=== PATIENT | female | born 1995 | race African-American/Black ===

== ENCOUNTER 2016-07-03 00:15 | Emergency (ER) | payer OTHER ==
[2016-07-03 01:15] LABS: MEAN CORPUSCULAR HEMOGLOBIN 22.8 pg (27.0-33.0); MEAN CORPUSCULAR HGB CONC 30.7 g/dl (32.0-36.5); MEAN CORPUSCULAR VOLUME 74.2 fl (80.0-96.0); RED CELL DISTRIBUTION WIDTH 14.9 % (11.5-14.5); WHITE BLOOD COUNT 8.1 K/mm3 (4.0-10.0)
[2016-07-03 01:32] LABS: CONTROL LINE HCG INT CTR LINE PRESENT
[2016-07-03 01:48] LABS: ALBUMIN 3.8 GM/DL (3.2-5.2); ALBUMIN/GLOBULIN RATIO 1.09 (1.00-1.93); ALKALINE PHOSPHATASE 65 U/L (45-117); ALT/SGPT 30 U/L (12-78); ANION GAP 9 MEQ/L (8-16); AST/SGOT 30 U/L (15-37); BILIRUBIN,DIRECT < 0.1 MG/DL (0.0-0.2); BILIRUBIN,TOTAL 0.2 MG/DL (0.2-1.0); BLOOD UREA NITROGEN 12 MG/DL (7-18); CALCIUM LEVEL 8.1 MG/DL (8.5-10.1); CARBON DIOXIDE LEVEL 27 MEQ/L (21-32); CHLORIDE LEVEL 105 MEQ/L (98-107); CREATININE FOR GFR 1.07 MG/DL (0.55-1.02); GLOMERULAR FILTRATION RATE > 60.0 (>60); GLUCOSE, FASTING 107 MG/DL (70-105); POTASSIUM SERUM 3.6 MEQ/L (3.5-5.1); SODIUM LEVEL 141 MEQ/L (136-145); TOTAL PROTEIN 7.3 GM/DL (6.4-8.2)
--- NOTE | 2016-07-03 04:32 | EDDOCDS ---
Physician Documentation [facility] Name: Corazon Portillo Age: 20 yrs Sex: Female : 1995 Arrival Date: 07/03/2016 Time: 00:15 Bed OBSERVATION Private MD: [facility] [place] Disposition: 07/03/16 04:16 Discharged to Home/Self Care. Impression: Alcohol abuse with intoxication, Adult antisocial behavior. - Condition is Stable. - Medication Reconciliation, Local Pharmacy Hours form. - Follow up: [facility] [place]; When: Call to arrange an appointment; Reason: Recheck today's complaints. - Problem is new. - Symptoms are unchanged. Historical: - Allergies: No known drug Allergies; - Home Meds: 1. none - PMHx: none; - PSHx: none; - Social history: Smoking status: Patient states was never smoker of tobacco. No barriers to communication noted, The patient speaks fluent Frisian. - Family history: Not pertinent. - : The pt / caregiver states he / she is not on anticoagulants. Home medication list is obtained from [employer] import data. - Exposure Risk Screening:: None identified. Vital Signs: 07/03 00:21 BP 116 / 60 LA Supine (auto/reg); Pulse 67 MON; Resp 18 S; Temp 97.6(TE); Pulse Ox 99% cln on R/A; 01:35 BP 121 / 47; Pulse 64; Resp 16; Pulse Ox 100% on R/A; ko2 02:29 BP 118 / 51; Pulse 64; Resp 16; Pulse Ox 100% ; Pain 0/10; ko2 04:29 BP 119 / 50; Pulse 64; Resp 16; Temp 98.4; Pulse Ox 100% ; Pain 0/10; ko2 MDM: 00:57 Consult PFS/PSA/Quality Control Manager ordered. cs11 00:57 Consult PFS/PSA/Quality Control Manager: Patient's case requires discussion with on-call cs11 Psychiatrist ordered. 00:57 PSA/PFS to call Nursing Courtesy Bus Driver, to enter [place] data [place] if patient cs11 involuntarily admitted or transferred for SI or HI ordered. 00:57 Confirm accurate psychiatric medication list and times of last dosage ordered. cs11 00:57 Detain Pt Until Medically/PFS Cleared ordered. cs11 00:58 Acetaminophen Level Ordered. EDMS 00:58 Basic Metabolic Profile Ordered. EDMS 00:58 Complete Blood Count Ordered. EDMS 00:58 Drug Eval Toxicology ED Only Ordered. EDMS 00:58 Ethyl Alcohol (ethanol) Ordered. EDMS 00:58 HCG,Serum Qualitative Ordered. EDMS 00:58 Liver Profile Ordered. EDMS 00:58 Salicylate Level Ordered. EDMS 00:58 Thyroid Stimulating Hormone Ordered. EDMS 01:52 Fingerstick Blood Sugar Reviewed. cs11 01:52 Acetaminophen Level Reviewed. cs11 01:52 Basic Metabolic Profile Reviewed. cs11 01:52 Complete Blood Count Reviewed. cs11 01:52 Ethyl Alcohol (ethanol) Reviewed. cs11 01:52 Salicylate Level Reviewed. cs11 01:52 HCG,Serum Qualitative Reviewed. cs11 01:52 Liver Profile Reviewed. cs11 01:52 Thyroid Stimulating Hormone Reviewed. cs11 Point of Care Testing: Blood Glucose: 00:30 Blood Glucose: 132 mg/dL; ko2 Ranges: Signatures: Dispatcher [employer] Thor Jhaveri DO DO cs11 Dolores Uptno,RN RN ko2 MTDD
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
--- NOTE | 2016-07-05 05:32 | EDDOCDS ---
Physician Documentation [facility] Name: Corazon Portillo Age: 20 yrs Sex: Female : 1995 Arrival Date: 07/03/2016 Time: 00:15 Bed OBSERVATION Private MD: [facility] [place] Disposition: 07/03/16 04:16 Discharged to Home/Self Care. Impression: Alcohol abuse with intoxication, Adult antisocial behavior. - Condition is Stable. - Medication Reconciliation, Local Pharmacy Hours form. - Follow up: [facility] [place]; When: Call to arrange an appointment; Reason: Recheck today's complaints. - Problem is new. - Symptoms are unchanged. Historical: - Allergies: No known drug Allergies; - Home Meds: 1. none - PMHx: none; - PSHx: none; - Social history: Smoking status: Patient states was never smoker of tobacco. No barriers to communication noted, The patient speaks fluent Yi. - Family history: Not pertinent. - : The pt / caregiver states he / she is not on anticoagulants. Home medication list is obtained from [employer] import data. - Exposure Risk Screening:: None identified. Vital Signs: 07/03 00:21 BP 116 / 60 LA Supine (auto/reg); Pulse 67 MON; Resp 18 S; Temp 97.6(TE); Pulse Ox 99% cln on R/A; 01:35 BP 121 / 47; Pulse 64; Resp 16; Pulse Ox 100% on R/A; ko2 02:29 BP 118 / 51; Pulse 64; Resp 16; Pulse Ox 100% ; Pain 0/10; ko2 04:29 BP 119 / 50; Pulse 64; Resp 16; Temp 98.4; Pulse Ox 100% ; Pain 0/10; ko2 MDM: 00:57 Consult PFS/PSA/Director Of Housing ordered. cs11 00:57 Consult PFS/PSA/Director Of Housing: Patient's case requires discussion with on-call cs11 Psychiatrist ordered. 00:57 PSA/PFS to call Nursing Pool Cleaner, to enter patient data [place] if patient cs11 involuntarily admitted or transferred for SI or HI ordered. 00:57 Confirm accurate psychiatric medication list and times of last dosage ordered. cs11 00:57 Detain Pt Until Medically/PFS Cleared ordered. cs11 00:58 Acetaminophen Level Ordered. EDMS 00:58 Basic Metabolic Profile Ordered. EDMS 00:58 Complete Blood Count Ordered. EDMS 00:58 Drug Eval Toxicology ED Only Ordered. EDMS 00:58 Ethyl Alcohol (ethanol) Ordered. EDMS 00:58 HCG,Serum Qualitative Ordered. EDMS 00:58 Liver Profile Ordered. EDMS 00:58 Salicylate Level Ordered. EDMS 00:58 Thyroid Stimulating Hormone Ordered. EDMS 01:52 Fingerstick Blood Sugar Reviewed. cs11 01:52 Acetaminophen Level Reviewed. cs11 01:52 Basic Metabolic Profile Reviewed. cs11 01:52 Complete Blood Count Reviewed. cs11 01:52 Ethyl Alcohol (ethanol) Reviewed. cs11 01:52 Salicylate Level Reviewed. cs11 01:52 HCG,Serum Qualitative Reviewed. cs11 01:52 Liver Profile Reviewed. cs11 01:52 Thyroid Stimulating Hormone Reviewed. cs11 04:33 Financial registration complete. hs2 04:42 [facility] Payment Agreement was scanned into [employer] and attached to record. hs2 14:32 T-Sheet-- Draft Copy was scanned into [employer] and attached to record. gb 14:33 PCR was scanned into [employer] and attached to record. gb Point of Care Testing: Blood Glucose: 00:30 Blood Glucose: 132 mg/dL; ko2 Ranges: Signatures: Dispatcher [employer] EDMS Ana Kumar, Reg Reg gb Thor Robison DO DO cs11 Dolores Upton,RN RN ko2 Antonette Alexis, Reg Reg hs2 The chart was reviewed and I authenticate all verbal orders and agree with the evaluation and treatment provided.Attachments: 04:42 [facility] Payment Agreement hs2 14:32 T-Sheet-- Draft Copy gb Chart Complete MTDD
--- NOTE | 2016-07-05 05:32 | EDDOCDS ---
Physician Documentation [facility] Name: Corazon Portillo Age: 20 yrs Sex: Female : 1995 Arrival Date: 07/03/2016 Time: 00:15 Bed OBSERVATION Private MD: [facility] [place] Disposition: 07/03/16 04:16 Discharged to Home/Self Care. Impression: Alcohol abuse with intoxication, Adult antisocial behavior. - Condition is Stable. - Medication Reconciliation, Local Pharmacy Hours form. - Follow up: [facility] [place]; When: Call to arrange an appointment; Reason: Recheck today's complaints. - Problem is new. - Symptoms are unchanged. Historical: - Allergies: No known drug Allergies; - Home Meds: 1. none - PMHx: none; - PSHx: none; - Social history: Smoking status: Patient states was never smoker of tobacco. No barriers to communication noted, The patient speaks fluent Khmer. - Family history: Not pertinent. - : The pt / caregiver states he / she is not on anticoagulants. Home medication list is obtained from [employer] import data. - Exposure Risk Screening:: None identified. Vital Signs: 07/03 00:21 BP 116 / 60 LA Supine (auto/reg); Pulse 67 MON; Resp 18 S; Temp 97.6(TE); Pulse Ox 99% cln on R/A; 01:35 BP 121 / 47; Pulse 64; Resp 16; Pulse Ox 100% on R/A; ko2 02:29 BP 118 / 51; Pulse 64; Resp 16; Pulse Ox 100% ; Pain 0/10; ko2 04:29 BP 119 / 50; Pulse 64; Resp 16; Temp 98.4; Pulse Ox 100% ; Pain 0/10; ko2 MDM: 00:57 Consult PFS/PSA/Drywaller ordered. cs11 00:57 Consult PFS/PSA/Drywaller: Patient's case requires discussion with on-call cs11 Psychiatrist ordered. 00:57 PSA/PFS to call Nursing Shipwright Helper, to enter patient data [place] if patient cs11 involuntarily admitted or transferred for SI or HI ordered. 00:57 Confirm accurate psychiatric medication list and times of last dosage ordered. cs11 00:57 Detain Pt Until Medically/PFS Cleared ordered. cs11 00:58 Acetaminophen Level Ordered. EDMS 00:58 Basic Metabolic Profile Ordered. EDMS 00:58 Complete Blood Count Ordered. EDMS 00:58 Drug Eval Toxicology ED Only Ordered. EDMS 00:58 Ethyl Alcohol (ethanol) Ordered. EDMS 00:58 HCG,Serum Qualitative Ordered. EDMS 00:58 Liver Profile Ordered. EDMS 00:58 Salicylate Level Ordered. EDMS 00:58 Thyroid Stimulating Hormone Ordered. EDMS 01:52 Fingerstick Blood Sugar Reviewed. cs11 01:52 Acetaminophen Level Reviewed. cs11 01:52 Basic Metabolic Profile Reviewed. cs11 01:52 Complete Blood Count Reviewed. cs11 01:52 Ethyl Alcohol (ethanol) Reviewed. cs11 01:52 Salicylate Level Reviewed. cs11 01:52 HCG,Serum Qualitative Reviewed. cs11 01:52 Liver Profile Reviewed. cs11 01:52 Thyroid Stimulating Hormone Reviewed. cs11 04:33 Financial registration complete. hs2 04:42 [facility] Payment Agreement was scanned into [employer] and attached to record. hs2 14:32 T-Sheet-- Draft Copy was scanned into [employer] and attached to record. gb 14:33 PCR was scanned into [employer] and attached to record. gb Point of Care Testing: Blood Glucose: 00:30 Blood Glucose: 132 mg/dL; ko2 Ranges: Signatures: Dispatcher [employer] EDMS Ana Kumar, Reg Reg gb Thor Robison DO DO cs11 Dolores Upton,RN RN ko2 Antonette Alexis, Reg Reg hs2 The chart was reviewed and I authenticate all verbal orders and agree with the evaluation and treatment provided.Attachments: 04:42 [facility] Payment Agreement hs2 14:32 T-Sheet-- Draft Copy gb Chart Complete MTDD
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
== END 2016-07-03 04:30 | disposition home or self-care (01) ==
LOC: M ED 00:15
DX: F10.120 Alcohol abuse with intoxication, uncomplicated (principal); Z72.811 Adult antisocial behavior
CPT/HCPCS: 36415; 80048; 80076; 84443; 84703; 85027; 99283; G0480

== ENCOUNTER 2017-07-27 12:45 | Outpatient (CLI) | payer OTHER, SELFPAY ==
[2017-07-27] MEDS: LR 1,000 ML IV (13:45)
[2017-07-27] MEDS ORDERED: FLUCONAZOLE 50MG TABLET PO (14:15)
[2017-07-27 14:32] LABS: APPEARANCE, URINE CLEAR (CLEAR); BACTERIA, URINE AUTO NEGATIVE (NEGATIVE); BILIRUBIN, URINE AUTO NEGATIVE (NEGATIVE); BLOOD, URINE BLOOD NEGATIVE (NEGATIVE); COLOR, URINE STRAW (YELLOW); GLUCOSE, URINE (UA) AUTO NEGATIVE (NEGATIVE); KETONE, URINE AUTO 1+ mg/dL (NEGATIVE); LEUKOCYTE ESTERASE, URINE AUTO NEGATIVE (NEGATIVE); NITRITE, URINE AUTO NEGATIVE (NEGATIVE); PROTEIN, URINE AUTO NEGATIVE (NEGATIVE); RBC, URINE AUTO 0 /HPF (0-3); SPECIFIC GRAVITY URINE AUTO 1.004 (1.002-1.035); SQUAMOUS EPITHELIAL CELL UR AU 3 /HPF (0-6); UROBILINOGEN, URINE AUTO 0.2 mg/dL (0.0-2.0); WBC, URINE AUTO 0 /HPF (0-3)
[2017-07-27] MEDS: FLUCONAZOLE 50MG TABLET PO (14:45)
[2017-07-27] MEDS: FLUCONAZOLE 100 MG TAB PO (14:45)
[2017-07-27] MEDS: ACETAMINOPHEN 500 MG TAB PO (14:46)
[2017-07-27 16:15] LABS: CHLAMYDIA DNA AMPLIFICATION NEGATIVE (NEGATIVE); GC DNA AMPLIFICATION NEGATIVE (NEGATIVE)
== END 2017-07-27 15:49 | disposition home or self-care (01) ==
LOC: M LDO 12:45
DX: O26.893 Other specified pregnancy related conditions, third trimester (principal); M54.5 Low back pain; O23.593 Infection of other part of genital tract in pregnancy, third trimester; Z3A.33 33 weeks gestation of pregnancy
CPT/HCPCS: 59025

== ENCOUNTER 2017-09-02 04:07 | Outpatient (CLI) | payer OTHER | END 2017-09-02 05:45 | disposition home or self-care (01) | LOC: M LDO 04:07 | DX: O47.1 False labor at or after 37 completed weeks of gestation (principal); Z3A.38 38 weeks gestation of pregnancy | CPT/HCPCS: 59025 ==

== ENCOUNTER 2017-09-17 10:56 | Outpatient (CLI) | payer OTHER ==
[2017-09-17] MEDS ORDERED: LACTATED RINGER'S 1000 ML IV (11:48)
== END 2017-09-17 14:55 | disposition home or self-care (01) ==
LOC: M LDO 10:56
DX: O47.1 False labor at or after 37 completed weeks of gestation (principal); Z3A.40 40 weeks gestation of pregnancy; O99.213 Obesity complicating pregnancy, third trimester; O99.353 Diseases of the nervous system complicating pregnancy, third trimester; G43.909 Migraine, unspecified, not intractable, without status migrainosus; O99.820 Streptococcus B carrier state complicating pregnancy
CPT/HCPCS: 59025

== ENCOUNTER 2017-09-17 15:20 | Inpatient (IN) | payer OTHER ==
[2017-09-17 16:18] LABS: HEMOGLOBIN 9.5 g/dl (12.0-15.5); MEAN CORPUSCULAR HEMOGLOBIN 20.7 pg (27.0-33.0); MEAN CORPUSCULAR HGB CONC 30.6 g/dl (32.0-36.5); MEAN CORPUSCULAR VOLUME 67.7 fl (80.0-96.0); PLATELET COUNT, AUTOMATED 187 10^3/uL (150-450); RED BLOOD COUNT 4.58 10^6/uL (4.00-5.40); RED CELL DISTRIBUTION WIDTH 17.8 % (11.5-14.5); WHITE BLOOD COUNT 11.3 10^3/uL (4.0-10.0)
[2017-09-17] MEDS: PENICILLIN G POTASSIUM IV 5 MU in D5W MINI-BAG PLUS 100 ML IV (16:18)
[2017-09-17] MEDS: LR 1,000 ML IV ×2 (16:18→20:47)
[2017-09-17] MEDS: NALBUPHINE HCL 10 MG/ML AMP (J2300) IV (17:00)
[2017-09-17] MEDS: PROMETHAZINE INJ 25 MG/ML VIAL (J2550) IV (17:01)
[2017-09-17] MEDS ORDERED: FENTANYL 2MCG/ML ROPIVACAINE 0.2% IN 0.9% NACL 200ML IVBAG As Ordered (20:13)
[2017-09-17] MEDS: PENICILLIN G POTASSIUM IV 2.5 MU in APPROPRIATE DILUENT 1 EA IV (20:47)
[2017-09-17] MEDS ORDERED: FENTANYL/ROPIVACAINE/NACL BAG 200 ML EPIDURAL (21:15)
[2017-09-17] MEDS ORDERED: REFRIGERATOR IV KEYS XX (21:15)
[2017-09-17] MEDS ORDERED: LACTATED RINGER'S 1000 ML IV (21:15)
[2017-09-17] MEDS ORDERED: ONDANSETRON 4MG/2ML VIAL (J2405) IV (21:15)
[2017-09-17] MEDS ORDERED: diphenhydrAMINE INJ 50MG/ML VIAL (J1200) IV (21:15)
[2017-09-17] MEDS ORDERED: ePHEDrine SULFATE 25 MG/5 ML(5MG/ML) SYRINGE IV (21:15)
[2017-09-17] MEDS ORDERED: NALOXONE INJ 0.4 MG/1 ML VIAL (J2310) IV (21:15)
[2017-09-17] MEDS ORDERED: EPIDURAL/PCA KEYS XX (21:15)
[2017-09-17] MEDS ORDERED: EPIDURAL COMMENT XX (21:15)
[2017-09-17] MEDS ORDERED: OXYTOCIN 30 UNITS IN 0.9% NaCl 500ML IV BAG (J2590) As Ordered (22:28)
[2017-09-17] MEDS ORDERED: EPINEPHrine INJ 1 MG/ML 1ML AMP As Ordered (23:01)
[2017-09-17] MEDS ORDERED: LIDOCAINE PRES-FREE 2% 10ML AMP As Ordered ×2 (23:01)
[2017-09-17] MEDS ORDERED: OXYTOCIN INJ 10 UNITS/ML VIAL (J2590) As Ordered ×2 (23:04)
[2017-09-17] MEDS ORDERED: ceFAZolin 2 GM/D5W 50 ML IV BAG (J0690 PER 500MG) As Ordered ×2 (23:10→23:15)
[2017-09-17] MEDS ORDERED: BICITRA 30ML SOLN UDC As Ordered ×2 (23:11→23:15)
[2017-09-17] MEDS: BICITRA 30ML SOLN UDC PO (23:30)
[2017-09-18] MEDS ORDERED: MORPHINE PRES-FREE INJ 10 MG/10 ML VIAL (J2274) As Ordered (00:11)
[2017-09-18] MEDS ORDERED: METOCLOPRAMIDE INJ 10MG/2ML VIAL (J2765) IV ×2 (00:30→01:00)
[2017-09-18] MEDS ORDERED: NALOXONE INJ 0.4 MG/1 ML VIAL (J2310) IV ×2 (00:30)
[2017-09-18] MEDS ORDERED: ONDANSETRON 4MG/2ML VIAL (J2405) IV ×2 (00:30→01:15)
[2017-09-18 00:31] LABS: CORD GAS ABE V -4.2; CORD GAS HCO3 V 23.6 MEQ/L; CORD GAS O2 SAT V 33.4 %; CORD GAS PH V 7.266 UNITS; CORD GAS PO2 V 17.4 mmHg; CORD GAS SBC V 19.4 MEQ/L; CORD GAS TCO2 V 25.2 MEQ/L
[2017-09-18 00:40] LABS: CORD GAS PH A 7.224 UNITS
[2017-09-18 00:41] LABS: CORD GAS ABE A -4.6; CORD GAS HCO3 A 24.2 MEQ/L; CORD GAS PCO2 A 59.9 mmHg; CORD GAS PO2 A 10.3 mmHg
[2017-09-18] MEDS ORDERED: PERCOCET 5MG/325MG TAB PO (01:00)
[2017-09-18] MEDS ORDERED: KETOROLAC 30 MG/ML VIAL (J1885) IV ×2 (01:00→01:15)
[2017-09-18] MEDS ORDERED: ONDANSETRON 4MG/2ML VIAL (J2405) As Ordered (01:04)
[2017-09-18] MEDS ORDERED: NALBUPHINE HCL 10 MG/ML AMP (J2300) IV (01:15)
[2017-09-18] MEDS ORDERED: fentaNYL 100 MCG/2 ML INJECTION (J3010) IV (01:15)
[2017-09-18] MEDS: PERCOCET 5MG/325MG TAB PO ×2 (03:24→18:05)
[2017-09-18] MEDS: LR 1,000 ML IV (04:59)
[2017-09-18] MEDS: KETOROLAC 30 MG/ML VIAL (J1885) IV ×3 (06:46→18:46)
[2017-09-18] MEDS: RHOGAM 300 MCG (1500 IU) INJ (J2790) IM (07:22)
[2017-09-18] MEDS: MEASLES,MUMPS,RUBELLA VACCINE INJ (MMR-II) (90707) SC (07:22)
[2017-09-18] MEDS: NALBUPHINE HCL 10 MG/ML AMP (J2300) IV (08:31)
[2017-09-18] MEDS: PRENATAL VITAMINS CHEWABLE TABLET PO (08:31)
[2017-09-18] MEDS: DOCUSATE SODIUM 100 MG CAP PO ×2 (08:31→23:00)
[2017-09-19] MEDS: KETOROLAC 30 MG/ML VIAL (J1885) IV ×2 (00:23→01:00)
[2017-09-19] MEDS: IBUPROFEN 800 MG TAB PO ×3 (03:40→18:45)
[2017-09-19 06:41] LABS: HEMATOCRIT 23.9 % (36.0-47.0); MEAN CORPUSCULAR HEMOGLOBIN 20.4 pg (27.0-33.0); PLATELET COUNT, AUTOMATED 166 10^3/uL (150-450); RED BLOOD COUNT 3.62 10^6/uL (4.00-5.40); RED CELL DISTRIBUTION WIDTH 17.3 % (11.5-14.5); WHITE BLOOD COUNT 12.4 10^3/uL (4.0-10.0)
[2017-09-19 06:43] LABS: HEMOGLOBIN 7.4 g/dl (12.0-15.5)
[2017-09-19] MEDS: PRENATAL VITAMINS CHEWABLE TABLET PO (08:37)
[2017-09-19] MEDS: DOCUSATE SODIUM 100 MG CAP PO ×2 (08:37→21:50)
[2017-09-19] MEDS: PERCOCET 5MG/325MG TAB PO ×2 (08:38→21:51)
[2017-09-19] MEDS ORDERED: IBUPROFEN 800 MG TAB PO (09:00)
[2017-09-20] MEDS: IBUPROFEN 800 MG TAB PO ×2 (02:56→10:35)
[2017-09-20] MEDS: PRENATAL VITAMINS CHEWABLE TABLET PO (07:57)
[2017-09-20] MEDS: DOCUSATE SODIUM 100 MG CAP PO (07:58)
== END 2017-09-20 11:50 | disposition home or self-care (01) | DRG 766 ==
LOC: M LDI 15:20 → M OBS 09-18 01:57
PROVIDERS: Obstetrics & Gynecology
PROC: 10D00Z1 Extraction of Products of Conception, Low, Open Approach (ICD-10-PCS; principal; 2017-09-17 23:52)
DX: O48.0 Post-term pregnancy (principal); Z37.0 Single live birth; E66.9 Obesity, unspecified; O99.820 Streptococcus B carrier state complicating pregnancy; O76 Abnormality in fetal heart rate and rhythm complicating labor and delivery; O42.02 Full-term premature rupture of membranes, onset of labor within 24 hours of rupture; O99.214 Obesity complicating childbirth

== ENCOUNTER 2017-10-30 18:22 | Emergency (ER) | payer OTHER ==
[2017-10-30] MEDS: SUMAtriptan SUCCINATE 6 MG/0.5 ML VIAL SC (20:41)
== END 2017-10-30 21:42 | disposition home or self-care (01) ==
LOC: M ED 18:22
DX: G43.909 Migraine, unspecified, not intractable, without status migrainosus (principal)
CPT/HCPCS: 99283